=== PATIENT | male | born 1950 | race Caucasian/White ===

== ENCOUNTER → 2019-02-12 | Outpatient (CLI) | payer OTHER | LOC: M.RAD 10:18 | DX: J98.4 Other disorders of lung (principal); M85.80 Other specified disorders of bone density and structure, unspecified site; M47.814 Spondylosis without myelopathy or radiculopathy, thoracic region; Q25.46 Tortuous aortic arch ==

== ENCOUNTER 2019-11-04 16:38 | Emergency (ER) | payer OTHER ==
[~2019-11-04] VITALS: Ht 172.7 cm; Wt 81.7 kg
[2019-11-04 16:52] VITALS: BP 103/73
[2019-11-04] MEDS ORDERED: KEFLEX500 M1 PO (17:41)
== END 2019-11-04 17:58 | disposition home or self-care (01) ==
LOC: M.ERS 16:38
DX: S60.451A Superficial foreign body of left index finger, initial encounter (principal); W22.8XXA Striking against or struck by other objects, initial encounter; Y93.89 Activity, other specified; Y92.89 Other specified places as the place of occurrence of the external cause; Y99.9 Unspecified external cause status